=== PATIENT | male | born 1955 | race Caucasian/White ===

== ENCOUNTER → 2017-01-04 | Outpatient (CLI) | payer BC, MEDICARE ==
[2017-01-04 21:05] LABS: INR 1.2 (<1.1); Prothrombin Time 12.1 sec (9.0-12.0)
== END | disposition home or self-care (01) ==
LOC: MMGSC 10:23
PROVIDERS: ATTEND Family Medicine
DX: Z79.01 Long term (current) use of anticoagulants (principal)
CPT/HCPCS: 36415; 85610

== ENCOUNTER → 2017-02-01 | Outpatient (CLI) | payer BC, MEDICARE ==
[2017-02-01 18:36] LABS: INR 2.1 (<1.1); Prothrombin Time 20.1 sec (9.0-12.0)
== END | disposition home or self-care (01) ==
LOC: MMGSC 11:49
PROVIDERS: ATTEND Family Medicine
DX: Z79.01 Long term (current) use of anticoagulants (principal); Z51.81 Encounter for therapeutic drug level monitoring
CPT/HCPCS: 36415; 85610

== ENCOUNTER → 2017-04-15 | Outpatient (CLI) | payer BC, MEDICARE ==
[2017-04-15 18:44] LABS: INR 2.5 (<1.1); Prothrombin Time 24.2 sec (9.0-12.0)
[2017-04-15 19:05] LABS: ALT 37 U/L (21-72); AST 25 U/L (17-59); Alkaline Phosphatase 69 U/L (38-126); Anion Gap 13 mmol/L; Blood Urea Nitrogen 15 mg/dL (9-20); Calcium 9.1 mg/dL (8.4-10.2); Carbon Dioxide 26 mmol/L (22-30); Chloride 103 mmol/L (98-107); Cholesterol 199 mg/dL (<200); Glucose 99 mg/dL (74-99); HDL Cholesterol 40 mg/dL (40-60); Non-African American GFR(MDRD) >60 (>60 ml/min/1.73 sqM); Potassium 4.4 mmol/L (3.5-5.1); Sodium 142 mmol/L (137-145); Total Bilirubin 0.8 mg/dL (0.2-1.3); Total Protein 7.2 g/dL (6.3-8.2); Triglycerides 185 mg/dL (<150)
== END ==
LOC: MMGSC 09:29
PROVIDERS: ATTEND Family Medicine
DX: Z00.00 Encounter for general adult medical examination without abnormal findings (principal); E78.00 Pure hypercholesterolemia, unspecified; Z51.81 Encounter for therapeutic drug level monitoring; Z79.01 Long term (current) use of anticoagulants
CPT/HCPCS: 36415; 80053; 80061; 85610

== ENCOUNTER → 2017-08-05 | Outpatient (CLI) | payer BC, MEDICARE ==
[2017-08-05 19:05] LABS: INR 1.9 (<1.2); Prothrombin Time 18.4 sec (9.0-12.0)
== END | disposition home or self-care (01) ==
LOC: MMGSC 10:42
PROVIDERS: ATTEND Family Medicine
DX: Z51.81 Encounter for therapeutic drug level monitoring (principal); Z79.01 Long term (current) use of anticoagulants
CPT/HCPCS: 36415; 85610

== ENCOUNTER → 2017-12-14 | Outpatient (CLI) | payer BC, MEDICARE ==
[2017-12-14 19:07] LABS: ALT 45 U/L (21-72); AST 34 U/L (17-59); Albumin 4.4 g/dL (3.5-5.0); Alkaline Phosphatase 77 U/L (38-126); Anion Gap 13 mmol/L; Blood Urea Nitrogen 17 mg/dL (9-20); Calcium 9.3 mg/dL (8.4-10.2); Carbon Dioxide 26 mmol/L (22-30); Chloride 102 mmol/L (98-107); Cholesterol 187 mg/dL (<200); Glucose 92 mg/dL (74-99); HDL Cholesterol 41 mg/dL (40-60); LDL Cholesterol,Calculated 105 mg/dL (0-99); Potassium 4.4 mmol/L (3.5-5.1); Sodium 141 mmol/L (137-145); Total Bilirubin 0.8 mg/dL (0.2-1.3); Total Protein 7.5 g/dL (6.3-8.2); Triglycerides 207 mg/dL (<150)
[2017-12-14 19:37] LABS: PSA Annual Screen 0.22 ng/mL (0.00-4.00)
== END | disposition home or self-care (01) ==
LOC: MMGSC 11:40
PROVIDERS: ATTEND Family Medicine
DX: E78.5 Hyperlipidemia, unspecified (principal); E55.9 Vitamin D deficiency, unspecified; I26.99 Other pulmonary embolism without acute cor pulmonale; Z12.5 Encounter for screening for malignant neoplasm of prostate; Z51.81 Encounter for therapeutic drug level monitoring; Z79.01 Long term (current) use of anticoagulants
CPT/HCPCS: 80061; 80053; 85610; 82306; 36415; G0103

== ENCOUNTER → 2018-03-15 | Outpatient (CLI) | payer BC, MEDICARE ==
[2018-03-15 18:41] LABS: Prothrombin Time 18.5 sec (9.0-12.0)
== END | disposition home or self-care (01) ==
LOC: MMGSC 10:00
PROVIDERS: ATTEND Family Medicine
DX: E55.9 Vitamin D deficiency, unspecified (principal); Z79.01 Long term (current) use of anticoagulants
CPT/HCPCS: 36415; 82306; 85610

== ENCOUNTER → 2021-01-27 | Outpatient (CLI) | payer MEDICARE ==
--- NOTE | 2021-01-27 15:17 | US ---
EXAMINATION TYPE: US abdomen complete DATE OF EXAM: 01/27/2021 COMPARISON: NONE CLINICAL HISTORY: 65-year-old male E10.13 EPIGASTRIC PAIN. Pain TECHNIQUE: Multiple sonographic images of the abdomen are obtained. FINDINGS: Sonography note: Limitations due to body habitus. EXAM MEASUREMENTS: Liver Length: 18.9 cm Gallbladder Wall: .2 cm CBD: .5 cm Spleen: 11.6 cm Right Kidney: 10.1 x 4.1 x 4.4 cm Left Kidney: 10.4 x 6.1 x 4.5 cm Pancreas: Obscured by bowel gas Liver: Increased attenuation suspected to be on a technical basis. Gallbladder: No stones seen Evidence for sonographic Brown's sign: No CBD: wnl Spleen: wnl Kidneys: No hydronephrosis. Upper IVC: limited Abd Aorta: wnl IMPRESSION: 1. Slightly echogenic appearance to the liver suspected to be on a technical basis. Given mild hepato megaly (18.9 cm), correlate with LFTs, lipid profile, and patient risk factors for mild hepatic steat osis. 2. No gallstones or biliary ductal dilatation.
== END ==
LOC: RADUSWWP 10:34
PROVIDERS: ATTEND Surgery
DX: R16.0 Hepatomegaly, not elsewhere classified (principal)
CPT/HCPCS: 76700

== ENCOUNTER → 2021-02-19 | Outpatient (CLI) | payer MEDICARE ==
--- NOTE | 2021-02-19 09:06 | CT ---
EXAMINATION TYPE: CT abdomen w con DATE OF EXAM: 02/19/2021 COMPARISON: None HISTORY: Epigastric pain CT DLP: 1428 mGycm CONTRAST: CT scan of the abdomen is performed with Oral Contrast and with IV Contrast, patient injected with 10 0 mL of Isovue 300. FINDINGS: LUNG BASES-: . Sliding-type hiatal hernia noted. Basilar linear atelectasis or parenchymal scarring. LIVER/GB: No calcified gallstones. No space occupying hepatic lesion. Biliary tree is of normal ca liber. PANCREAS: No inflammation. No distinct mass. SPLEEN: No splenic enlargement. No lesion seen. ADRENALS: No nodule. No thickening. KIDNEYS/BLADDER: No hydronephrosis. No nephrolithiasis. No distinct renal mass. Urinary bladder g rossly unremarkable. BOWEL: Visualized bowel loops are of normal caliber. LYMPH NODES: No greater than 1cm abdominal or pelvic lymph nodes are appreciated. AORTA: No significant abnormality. OSSEOUS STRUCTURES: No significant abnormality is seen. OTHER: No significant additional abnormality is seen. IMPRESSION: 1. Sliding-type hiatal hernia noted.
== END | disposition home or self-care (01) ==
LOC: RADCTMAIN 07:42
PROVIDERS: ATTEND Surgery
DX: K44.9 Diaphragmatic hernia without obstruction or gangrene (principal)
CPT/HCPCS: 74160; Q9967

== ENCOUNTER 2021-03-11 09:18 | Day surgery (SDC) | payer MEDICARE ==
[~2021-03-11 09:18] MED LIST: LACTATED RINGERS 1,000 ML IV SCH; LIDOCAINE 1% (10MG/ML) FOR IV START INTRADERMA PRN
[2021-03-11 09:42] VITALS: TEMP 97.9
[2021-03-11] MEDS ORDERED: PROPOFOL 10 MG/ML 20 ML VIAL IV ONE (10:43)
--- NOTE | 2021-03-11 10:43 | P.GSHP ---
History of Present Illness H&P Date: 03/11/21 Chief Complaint: Epigastric pain, change in bowel habits 65-year-old male seen in the office December. Patient complains of epigastric pain. Seems to be aggravated by meals. Says it feels like somebody punched him in the stomach. Previous gallbladder workup was normal. Last upper and lower endoscopy by Dr. De La Cruz for years ago. Patient with a incarcerated hernia. CAT scan performed recently showing a hiatal hernia but no other definite abnormalities. Patient has had some change in bowel habits. Past Medical History Past Medical History: GERD/Reflux, Hyperlipidemia, Osteoarthritis (OA), Pulmonary Embolus (PE), Thyroid Disorder Additional Past Medical History / Comment(s): CHRONIC LOWER BACK PAIN. HIATAL HERNIA/UMBILICAL HERNIA. HX: RETINAL DETACHMENT OF RIGHT EYE HAS RESOLVED. History of Any Multi-Drug Resistant Organisms: None Reported Past Surgical History: Hernia Repair Additional Past Surgical History / Comment(s): FLACA AND FUSION LOWER BACK. BILATERAL ING HERNIA/RIGHT HYDROCELE REPAIR Past Anesthesia/Blood Transfusion Reactions: No Reported Reaction Past Psychological History: Anxiety Smoking Status: Never smoker Past Alcohol Use History: None Reported Past Drug Use History: None Reported - Past Family History Mother Family Medical History: No Reported History Medications and Allergies Home Medications Medication Instructions Recorded Confirmed Type ALPRAZolam [Xanax] 0.25 mg PO QAM 03/07/21 03/11/21 History ALPRAZolam [Xanax] 0.5 mg PO HS 03/07/21 03/11/21 History HYDROcodone/APAP 10-325MG [[place] 1 tab PO TID 03/07/21 03/11/21 History 10-325] Levothyroxine Sodium [Synthroid] 50 mcg PO QAM 03/07/21 03/11/21 History Pantoprazole [Protonix] 40 mg PO QAM 03/07/21 03/11/21 History Rosuvastatin [Crestor] 10 mg PO DAILY 03/07/21 03/11/21 History Warfarin Sodium 5 mg PO DAILY 03/07/21 03/11/21 History Allergies Allergy/AdvReac Type Severity Reaction Status Date / Time amoxicillin Allergy Rash/Hives Verified 03/07/21 16:27 morphine AdvReac Nausea & Verified 03/07/21 16:27 Vomiting Surgical - Exam Vital Signs Temp Pulse Resp BP Pulse Ox 97.9 F 85 16 145/94 97 03/11/21 09:33 03/11/21 09:33 03/11/21 09:33 03/11/21 09:33 03/11/21 09:33 Physical exam: General: Well-developed, well-nourished HEENT: Normocephalic, sclerae nonicteric Abdomen: Nontender, nondistended Extremities: No edema Neuro: Alert and oriented Assessment and Plan (1) Change in bowel habits Narrative/Plan: Will proceed with upper and lower endoscopy Current Visit: Yes Status: Acute Code(s): R19.4 - CHANGE IN BOWEL HABIT SNOMED Code(s): 014342841
--- NOTE | 2021-03-11 11:07 | P.PCN ---
Date of Procedure: 03/11/21 Procedure(s) Performed: PREOPERATIVE DIAGNOSIS: Epigastric pain, change in bowel habits POSTOPERATIVE DIAGNOSIS: Gastritis, small hiatal hernia, diverticulosis PROCEDURE: 1. EGD with biopsy 2. Colonoscopy ANESTHESIA: [facility] SURGEON: Cipriano Carroll M.D. SPECIMENS: Antrum ENDOSCOPIC PROCEDURE: The patient was on the endoscopy table in the left decubitus position. The Olympus gastroscope was inserted into the oropharynx and passed under direct visualization to the region of the third portion of the duodenum. From that point the scope was slowly withdrawn inspecting all surfaces carefully. There were no neoplastic inflammatory or polypoid lesions throughout the duodenum. The pylorus was widely patent. The stomach was carefully inspected. There was mild gastritis present. A biopsy of the antrum took place to rule out H. pylori. Retroflexion revealed a small sliding hiatal hernia. The esophagus was then carefully examined. There were no neoplastic inflammatory or polypoid lesions throughout the visualized esophagus. The patient was kept on the endoscopy table in the left decubitus position. The Olympus colonoscope was inserted into the anus and passed under direct visualization to the base of the cecum. The appendiceal orifice was visualized. From that point the scope was slowly withdrawn inspecting all surfaces carefully. There were no neoplastic inflammatory or polypoid lesions throughout the cecum, ascending, transverse, descending, sigmoid and rectum. There was mil d left-sided diverticulosis noted. Digital rectal examination was normal. The patient was taken to the recovery room in stable condition per anesthesia guidelines. RECOMMENDATIONS: Resume diet. No definite etiology for the patient's pain is seen. Consider elective repair incarcerated umbilical hernia.
[2021-03-11 11:36] VITALS: BP 130/88; PULSE 75; RESP 18
== END 2021-03-11 11:59 | disposition home or self-care (01) ==
LOC: ORWHC2ENDO 09:18
PROVIDERS: ATTEND Surgery
DX: K29.50 Unspecified chronic gastritis without bleeding (principal); K44.9 Diaphragmatic hernia without obstruction or gangrene; K21.9 Gastro-esophageal reflux disease without esophagitis; K57.30 Diverticulosis of large intestine without perforation or abscess without bleeding; K42.0 Umbilical hernia with obstruction, without gangrene; E78.5 Hyperlipidemia, unspecified; E03.9 Hypothyroidism, unspecified; F41.9 Anxiety disorder, unspecified; M19.90 Unspecified osteoarthritis, unspecified site; Z79.01 Long term (current) use of anticoagulants; Z79.890 Hormone replacement therapy; Z79.899 Other long term (current) drug therapy; Z86.711 Personal history of pulmonary embolism; Z88.1 Allergy status to other antibiotic agents; Z88.5 Allergy status to narcotic agent
CPT/HCPCS: 88305; 45378; 43239; J2704

== ENCOUNTER 2023-12-22 10:49 | Day surgery (SDC) | payer MEDICARE ==
[2023-12-16 12:14] VITALS: BMI 29.5
[~2023-12-22 10:49] MED LIST changes: +ALPRAZolam 0.25 MG TAB PO PRN; +ALPRAZolam 0.5 MG TAB PO PRN; -LACTATED RINGERS 1,000 ML IV SCH; -LIDOCAINE 1% (10MG/ML) FOR IV START INTRADERMA PRN; +NITROGLYCERIN SL TABS 0.4 MG TAB SUBLINGUAL PRN
[2023-12-22] MEDS: SODIUM CHLORIDE 0.9% 1,000 ML IV ONE (11:10)
[2023-12-22] MEDS: SODIUM CHLORIDE 0.9% 1,000 ML in EMPTY BAG 1 BAG IV SCH ×2 (11:19→16:03)
[2023-12-22] MEDS: ASPIRIN 325 MG TAB PO STA (11:19)
[2023-12-22 11:25] LABS: Basophils % (A) 1 %; Eosinophils # (A) 0.2 k/uL (0-0.7); Eosinophils % (A) 2 %; HCT 42.8 % (39.0-53.0); HGB 14.5 gm/dL (13.0-17.5); Lymphocytes # (A) 2.2 k/uL (1.0-4.8); Lymphocytes % (A) 25 %; MCH 30.3 pg (25.0-35.0); MCHC 33.9 g/dL (31.0-37.0); MCV 89.3 fL (80.0-100.0); Mean Platelet Volume 8.5; Monocytes # (A) 0.4 k/uL (0-1.0); Monocytes % (A) 5 %; Neutrophils # (A) 5.6 k/uL (1.3-7.7); Neutrophils % (A) 65 %; Platelet Count 197 k/uL (150-450); RBC 4.79 m/uL (4.30-5.90); RDW 12.7 % (11.5-15.5); WBC 8.6 k/uL (3.8-10.6)
[2023-12-22 11:32] LABS: INR 1.1 (<1.2); Prothrombin Time 11.6 sec (10.0-12.5)
[2023-12-22 11:35] VITALS: RESP 16
[2023-12-22 11:41] LABS: African American GFR (CKD) >90 (>60 ml/min/1.73 sqM); Anion Gap 8 mmol/L; Blood Urea Nitrogen 16 mg/dL (9-20); Calcium 9.2 mg/dL (8.4-10.2); Carbon Dioxide 27 mmol/L (22-30); Chloride 104 mmol/L (98-107); Glucose 108 mg/dL (74-99); Non-African American GFR(CKD) >90 (>60 ml/min/1.73 sqM); Potassium 4.2 mmol/L (3.5-5.1); Sodium 139 mmol/L (137-145)
[2023-12-22] MEDS ORDERED: HEPARIN SODIUM 1,000 UN/ML (10ML VL) ONE (13:40)
[2023-12-22] MEDS ORDERED: VERAPAMIL 2.5 MG/ML 2 ML AMP ONE (13:40)
[2023-12-22] MEDS ORDERED: LIDOCAINE 1% INJ 10MG/ML (20 ML MDV) ONE (13:40)
[2023-12-22] MEDS ORDERED: fentaNYL (PF) 50 MCG/ML 2 ML AMP ONE (13:41)
[2023-12-22] MEDS: LIDOCAINE 1% INJ 10MG/ML (20 ML MDV) SQ ONE (13:58)
[2023-12-22] MEDS: VERAPAMIL SYRINGE (5 MG/10 ML) INTRAARTER ONE (13:59)
[2023-12-22] MEDS: fentaNYL (PF) 50 MCG/ML 2 ML AMP IVP ONE ×2 (14:00→14:05)
[2023-12-22] MEDS: MIDAZOLAM 2 MG/2 ML VIAL IVP ONE (14:00)
[2023-12-22] MEDS: HEPARIN SODIUM 1,000 UN/ML (10ML VL) IVP ONE ×2 (14:05→14:18)
[2023-12-22] MEDS ORDERED: CLOPIDOGREL 75 MG TAB ONE (14:08)
[2023-12-22] MEDS: CLOPIDOGREL 75 MG TAB PO ONE (14:12)
[2023-12-22] MEDS: NITROGLYCERIN 1000MCG/10ML SYRINGE INTRACORON ONE (14:20)
[2023-12-22] MEDS: IOPAMIDOL-370 50ML BTL IVP ONE (14:28)
[2023-12-22] MEDS: IOPAMIDOL-370 100ML BTL INJ ONE (14:35)
--- NOTE | 2023-12-22 14:50 | P.PRCINT ---
Percutaneous Coronary Int. - Percutaneous Coronary Intervention Percutaneous Coronary Intervention: PROCEDURES PERFORMED: Left heart catheterization, bilateral coronary angiography, ultrasound guided arterial access, intravascular ultrasound, PCI proximal LAD with a 3.5 x 15 mm Xience BERENICE INDICATION: Abnormal CTA, chest pain occurring intermittently with his back pain CONSENT:I have discussed the risks, benefits and alternative therapies for the above-mentioned procedure and for both sedation/analgesia as well as necessary blood product administration, if indicated, as they pertain to this patient. The patient has indicated understanding and acceptance of the risks and procedures discussed. PROCEDURE: After the risks, benefits and alternatives of the above mentioned procedure explained in detail with the patient, informed consent was obtained. Patient was taken to the catheterization lab and prepped and draped in usual fashion. Ultrasound guidance was used to assess for arterial access. 1% lidocaine was used to anesthetize the right radial artery. A 6-[place]ian sheath was placed in the right radial artery using modified Seldinger technique and ultrasound guidance. Left coronary angiography was performed with a 5-[place] JL 3.5 catheter and right coronary angiography was performed with a 5-[place]ian FR5 catheter in various views. A 5-[place] FR5 catheter was inserted into the left ventricle and pressure measurements were obtained. This decision was made to perform IVUS of the LAD. Heparin was given for ACT greater than 250. A 6 [place]ian CLS 4.0 guide was used to engage the left main. A 0.014 BMW wire was advanced into the distal LAD. Intravascular ultrasound was performed which showed reference vessel 3.5 mm, mild poststenotic dilation and 95% focal stenosis. Repeat intravascular ultrasound showed well-expanded stent with 0% stenosis with some more distal 20 to 30% stenosis. The original lesion appeared covered and no dissection and therefore this was felt best treated medically. Final angiograms were performed. Preintervention there was 95% stenosis and CHRIST III flow and postintervention there was less than 10% stenosis with CHRIST-3 flow. The right radial sheath was removed and a TR band was placed with hemostasis achieved. The patient tolerated the procedure well. Patient was transported back to the post catheterization holding area in stable condition. Conscious Sedation: Patient was monitored under the direct supervision of myself for conscious sedation using Versed and fentanyl for a total duration of 35 minutes HEMODYNAMICS: Aortic: 138/72 LV: 131/5, LVEDP 12 SELECTIVE CORONARY ARTERIOGRAPHY: LEFT MAIN: The left main is a large caliber vessel which bifurcates into the LAD and circumflex. There is no significant stenosis. LEFT ANTERIOR DESCENDING CORONARY ARTERY: LAD is a large caliber vessel which wraps around to the apex. There is mild to moderate proximal LAD 40% stenosis with a more focal napkin ring 95% mid LAD stenosis had a small caliber diagonal 1 branch. There is mild poststenotic dilation. The remainder of the mid to distal LAD has mild luminal irregularities. LEFT CIRCUMFLEX CORONARY ARTERY: Left circumflex is a large caliber vessel with mild luminal irregularities. The circumflex gives off a PDA and is the dominant vessel. RIGHT CORONARY ARTERY: The right coronary artery is a small to moderate caliber vessel which gives off an acute marginal branch and is the non dominant vessel. There is no significant stenosis. FINAL IMPRESSION: 1. CAD as described above including 40% proximal LAD, 95% mid LAD stenosis 2. S/p PCI proximal LAD with a 3.5 x 15 mm Xience BERENICE 3. Normal left sided filling pressures PLAN: 1. Aggressive risk factor modification per most recent ACC/AHA guidelines. 2. Continue dual antiplatelets with aspirin and Plavix for 6 months.
[2023-12-22] MEDS ORDERED: RX INFO: IV CONTRAST WAS GIVEN 1 EACH MISC MISCELLANE PRN (14:57)
[2023-12-22] MEDS ORDERED: ATROPINE SULFATE 0.1 MG/ML 10ML SYRINGE IV PRN (14:57)
[2023-12-22] MEDS ORDERED: ZOLPIDEM 5 MG TAB PO PRN (14:57)
[2023-12-22] MEDS: MAG HYDROX/AL HYDROX/SIMETH 30 ML CUP PO PRN (16:03)
[2023-12-22 16:57] VITALS: TEMP 98
[2023-12-22 18:49] VITALS: BP 119/76
[2023-12-22 21:01] VITALS: PULSE 69
[2023-12-23] MEDS ORDERED: CLOPIDOGREL 75 MG TAB PO SCH (09:00)
[2023-12-23] MEDS ORDERED: ASPIRIN 81 MG PO SCH (09:00)
[2023-12-23] MEDS ORDERED: lisinopriL 5 MG TAB PO SCH (09:00)
== END 2023-12-22 20:35 | disposition home or self-care (01) ==
LOC: CATHCVL 10:49 → 6NMEDSUR 15:53 → CATHCVL 20:35
PROVIDERS: ATTEND Internal Medicine
DX: I25.10 Atherosclerotic heart disease of native coronary artery without angina pectoris (principal); I10 Essential (primary) hypertension; E78.5 Hyperlipidemia, unspecified; Z98.890 Other specified postprocedural states; Z82.49 Family history of ischemic heart disease and other diseases of the circulatory system; Z79.01 Long term (current) use of anticoagulants; Z79.899 Other long term (current) drug therapy; Z88.0 Allergy status to penicillin; Z98.61 Coronary angioplasty status; Z86.711 Personal history of pulmonary embolism
CPT/HCPCS: 99152; 99153; 92978; 93458; 76937; 80048; 85025; 85610; C9600; C1769 ×2; C1887; C1894; C1753; C1874; C1725; J2250; J2001; J3010; J1644; Q9967 ×2; J2305

== ENCOUNTER 2025-03-08 11:21 | Day surgery (SDC) | payer MEDICARE ==
[2025-03-07 11:55] VITALS: BMI 29.1
[~2025-03-08 11:21] MED LIST changes: -ALPRAZolam 0.25 MG TAB PO PRN; -ALPRAZolam 0.5 MG TAB PO PRN; +LACTATED RINGERS 1,000 ML IV SCH; +LIDOCAINE 1% (10MG/ML) FOR IV START INTRADERMA PRN; -NITROGLYCERIN SL TABS 0.4 MG TAB SUBLINGUAL PRN
[2025-03-08 12:04] VITALS: RESP 16; TEMP 98
[2025-03-08] MEDS: IV FLUID CONTINUATION 1,000 ML IV ONE (12:07)
[2025-03-08] MEDS: LACTATED RINGERS 1,000 ML IV SCH (12:08)
[2025-03-08 12:24] LABS: INR 1.1 (<1.2); Prothrombin Time 12.2 sec (10.0-12.5)
[2025-03-08] MEDS ORDERED: LIDOCAINE 1% INJ 10MG/ML (20 ML MDV) ONE (12:46)
[2025-03-08] MEDS ORDERED: PROPOFOL 10 MG/ML 20 ML VIAL IV ONE (12:46)
--- NOTE | 2025-03-08 12:54 | P.GSHP ---
History of Present Illness H&P Date: 03/08/25 Chief Complaint: Epigastric pain, change in bowel habits 69-year-old male known to our service. Last upper and lower endoscopy 4 years ago. Patient had gastritis, hiatal hernia, diverticulosis at that time. Recently has had recurrent episodes of epigastric discomfort. Says he takes Zofran occasionally for that with some relief. Still on antiacids daily. Patient is having less frequent stools. May be related to taking more [place] now. Denies rectal bleeding or melena. No family history of colon cancer. Past Medical History Past Medical History: GERD/Reflux, Hyperlipidemia, Osteoarthritis (OA), Pulmonary Embolus (PE), Thyroid Disorder Additional Past Medical History / Comment(s): CHRONIC LOWER BACK PAIN, HX: RETINAL DETACHMENT OF RIGHT EYE HAS RESOLVED, DOUBLE PE AFTER BACK SURGERY, IBS History of Any Multi-Drug Resistant Organisms: None Reported Past Surgical History: Back Surgery, Heart Catheterization With Stent, Hernia Repair Additional Past Surgical History / Comment(s): FLACA AND FUSION LOWER BACK, BILATERAL ING HERNIA ,RIGHT HYDROCELE REPAIR, COLONOSCOPY Past Anesthesia/Blood Transfusion Reactions: No Reported Reaction Date of Last Stent Placement:: 11/2023 Smoking Status: Former smoker - Past Family History Mother Family Medical History: No Reported History Medications and Allergies Home Medications Medication Instructions Recorded Confirmed Type HYDROcodone/APAP 10-325MG [[place] 1 tab PO TID 03/07/21 03/07/25 History 10-325] Levothyroxine Sodium [Synthroid] 50 mcg PO QAM 03/07/21 03/07/25 History Pantoprazole [Protonix] 40 mg PO QAM 03/07/21 03/07/25 History Rosuvastatin [Crestor] 10 mg PO DAILY 03/07/21 03/07/25 History Warfarin Sodium 5 mg PO DAILY 03/07/21 03/07/25 History Ondansetron [Zofran] 4 mg PO Q8HR PRN 12/16/23 03/07/25 History lisinopriL 2.5 mg PO DAILY #90 tab 12/22/23 03/07/25 Rx ALPRAZolam [Xanax] 0.5 mg PO BID 03/07/25 03/07/25 History Gabapentin 300 mg PO HS 03/07/25 03/07/25 History Allergies Allergy/AdvReac Type Severity Reaction Status Date / Time amoxicillin Allergy Rash/Hives Verified 03/08/25 11:51 morphine AdvReac Nausea & Verified 03/08/25 11:51 Vomiting Surgical - Exam Vital Signs Temp Pulse Resp BP Pulse Ox 98.0 F 91 16 154/91 97 03/08/25 12:02 03/08/25 12:02 03/08/25 12:02 03/08/25 12:02 03/08/25 12:02 Physical exam: General: Well-developed, well-nourished HEENT: Normocephalic, sclerae nonicteric Abdomen: Nontender, nondistended Extremities: No edema Neuro: Alert and oriented Assessment and Plan (1) Change in bowel habits Narrative/Plan: Will proceed with upper and lower endoscopy Current Visit: No Status: Acute Code(s): R19.4 - CHANGE IN BOWEL HABIT SNOMED Code(s): 38422420
--- NOTE | 2025-03-08 13:21 | P.PCN ---
Date of Procedure: 03/08/25 Procedure(s) Performed: PREOPERATIVE DIAGNOSIS: Epigastric pain, change in bowel habits POSTOPERATIVE DIAGNOSIS: Mild gastritis, small gastric polyp, hiatal hernia, diverticulosis, transverse colon polyp PROCEDURE: 1. EGD with biopsy 2. Colonoscopy with biopsy ANESTHESIA: [facility] [place] SURGEON: Cipriano Carroll M.D. SPECIMENS: Antrum, gastric polyp, transverse colon polyp ENDOSCOPIC PROCEDURE: The patient was on the endoscopy table in the left decubitus position. The Olympus gastroscope was inserted into the oropharynx and passed under direct visualization to the region of the third portion of the duodenum. From that point the scope was slowly withdrawn inspecting all surfaces carefully. There were no neoplastic inflammatory or polypoid lesions throughout the duodenum. The pylorus was widely patent. The stomach was carefully inspected. There was mild gastritis present. A biopsy of the antrum took place to rule out H. pylori. Patient had a small polyp in the stomach that was also removed using the cold biopsy forceps. Retroflexion revealed a small to medium sized hiatal hernia. The GE junction was present 2 to 3 cm above the diaphragmatic hiatus. There were no inflammatory changes in the esophagus however. The patient was kept on the endoscopy table in the left decubitus position. The Olympus colonoscope was inserted into the anus and passed under direct visualization to the base of the cecum. The appendiceal orifice was visualized. From that point the scope was slowly withdrawn inspecting all surfaces carefully. There were no neoplastic inflammatory or polypoid lesions throughout the cecum or ascending colon. In the transverse colon there is noted to be a small polyp that was able to be removed completely with the cold biopsy forceps. The remainder of the transverse descending sigmoid and rectum were free of any neoplastic inflammatory or polypoid lesions. The patient had mild scattered diverticulosis. Patient's prep was slightly suboptimal with some retained semisolid stool seen scattered throughout. Most of the mucosal surfaces were able to be well-visualized however. Digital rectal examination was normal. The patient was taken to the recovery room in stable condition per anesthesia guidelines. RECOMMENDATIONS: Await biopsy results. Will contact patient with timing for next upper or lower endoscopy. Constipation likely on the basis of recent narcotic use.
[2025-03-08 13:50] VITALS: BP 131/85; PULSE 70
== END 2025-03-08 14:03 | disposition home or self-care (01) ==
LOC: ORWHC2ENDO 11:21
PROVIDERS: ATTEND Surgery
DX: K29.50 Unspecified chronic gastritis without bleeding (principal); K31.7 Polyp of stomach and duodenum; K44.9 Diaphragmatic hernia without obstruction or gangrene; D12.3 Benign neoplasm of transverse colon; K57.30 Diverticulosis of large intestine without perforation or abscess without bleeding; E07.9 Disorder of thyroid, unspecified; I10 Essential (primary) hypertension; I25.10 Atherosclerotic heart disease of native coronary artery without angina pectoris; K21.9 Gastro-esophageal reflux disease without esophagitis; E78.5 Hyperlipidemia, unspecified; M19.90 Unspecified osteoarthritis, unspecified site; Z79.01 Long term (current) use of anticoagulants; Z86.711 Personal history of pulmonary embolism; Z87.891 Personal history of nicotine dependence; Z88.0 Allergy status to penicillin; Z88.5 Allergy status to narcotic agent; Z79.890 Hormone replacement therapy; Z98.890 Other specified postprocedural states
CPT/HCPCS: 88305; 85610; 45380; 43239; J2003; J2704